=== PATIENT | male | born 1985 | race Caucasian/White ===

== ENCOUNTER 2017-06-28 17:03 | Emergency (ER) | payer BC ==
[~2017-06-28] VITALS: Ht 177.8 cm; Wt 87.5 kg
[2017-06-28 17:41] LABS: EOS # 0.1 (0.04-0.40); EOS % 0.4 % (0.0-4.0); HEMOGLOBIN 16.5 g/dL (13.5-18.0); LYMPH# 2.9 (1.50-4.00); MEAN CELL VOLUME 88 fl (78-100); MEAN CORPUSCULAR HEMOGLOBIN 30 pg (27-31); MEAN CORPUSCULAR HGB CONC 34 g/dL (33-37); MEAN PLATELET VOLUME 10.7 fl (7.4-10.4); NEU # 7.5 (1.40-6.50); PLATELET COUNT 255 K/mm3 (130-400); RED CELL DISTRIBUTION WIDTH 13.2 % (11.5-14.5); WHITE BLOOD COUNT 11.5 K/mm3 (4.8-10.8)
[2017-06-28 17:50] LABS: ALBUMIN 4.3 g/dL (3.5-5.0); BUN/CREATININE RATIO 14.5 (6.0-26.0); CALCIUM 9.7 mg/dL (8.4-10.2); POTASSIUM 3.4 mmol/L (3.6-5.0); TOTAL BILIRUBIN 0.9 mg/dL (0.2-1.3); TOTAL PROTEIN 7.5 g/dL (6.3-8.2)
[2017-06-28 17:58] LABS: PH-URINE 5.5 (5.0 - 8.0); URINE APPEARANCE CLEAR; URINE BILIRUBIN NEGATIVE (NEGATIVE); URINE BLOOD NEGATIVE (NEGATIVE); URINE COLOR YELLOW; URINE GLUCOSE NEGATIVE (NEGATIVE); URINE KETONE NEGATIVE (NEGATIVE); URINE LEUKOCYTE ESTERASE NEGATIVE (NEGATIVE); URINE NITRATE NEGATIVE (NEGATIVE); URINE PROTEIN(semi-quant) TRACE mg/dL (NEGATIVE); URINE UROBILINOGEN NORMAL (NORMAL)
[2017-06-28] MEDS ORDERED: MOBIC15 M1 PO (18:05)
[2017-06-28] MEDS ORDERED: PROPRANOLOL HCL60 M3 PO (18:06)
[2017-06-28] MEDS ORDERED: TOPAMAX50 M1 PO (18:06)
[2017-06-28] MEDS ORDERED: CARAFATE 1GM1 G PO (18:06)
[2017-06-28] MEDS ORDERED: PLAQUENIL200 MG PO (18:06)
[2017-06-28] MEDS ORDERED: TYLENOL 500MG500 MG PO (18:06)
[2017-06-28] MEDS ORDERED: ADVIL 200MG TA200 MG PO (18:07)
[2017-06-28] MEDS ORDERED: ALUMINUM & MAG355 ML PO (18:07)
[2017-06-28] MEDS ORDERED: BENTYL 20MG20 MG/TAB PO (18:08)
[2017-06-28] MEDS ORDERED: PROTONIX TR40 M1 PO (18:08)
[2017-06-28] MEDS ORDERED: LEXAPRO 10MG10 MG PO (18:08)
[2017-06-28] MEDS ORDERED: ZOFRAN ODT8 M1 PO (20:16)
[2017-06-28] MEDS ORDERED: KETOROLAC10 MG PO (20:16)
[2017-06-28 20:25] VITALS: BP 131/79
== END 2017-06-28 20:25 | disposition home or self-care (01) ==
LOC: ED 17:03
PROVIDERS: Nurse Practitioner Family
DX: R10.31 Right lower quadrant pain (principal); R10.32 Left lower quadrant pain; M54.5 Low back pain; F32.9 Major depressive disorder, single episode, unspecified; K21.9 Gastro-esophageal reflux disease without esophagitis; R30.0 Dysuria; R11.2 Nausea with vomiting, unspecified; R63.0 Anorexia; R61 Generalized hyperhidrosis
CPT/HCPCS: J1885; J2270; J2405; J7030; Q9967

== ENCOUNTER 2018-06-18 06:15 | Emergency (ER) | payer SELFPAY ==
[~2018-06-18] VITALS: Ht 177.8 cm; Wt 81.8 kg
[~2018-06-18 06:15] MED LIST: ADVIL 200MG TA200 MG PO; ALUMINUM & MAG355 ML PO; BENTYL 20MG20 MG/TAB PO; CARAFATE 1GM1 G PO; KETOROLAC10 MG PO; LEXAPRO 10MG10 MG PO; MOBIC15 M1 PO; PLAQUENIL200 MG PO; PROPRANOLOL HCL60 M3 PO; PROTONIX TR40 M1 PO; TOPAMAX50 M1 PO; TYLENOL 500MG500 MG PO; ZOFRAN ODT8 M1 PO
[2018-06-18 06:20] VITALS: BP 139/90
[2018-06-18 07:19] LABS: EOS # 0.1 (0.04-0.40); EOS % 0.9 % (0.0-4.0); HEMATOCRIT 45.9 % (42.0-52.0); HEMOGLOBIN 15.9 g/dL (13.5-18.0); LYMPH# 2.9 (1.50-4.00); MEAN CELL VOLUME 86 fl (78-100); MEAN CORPUSCULAR HEMOGLOBIN 30 pg (27-31); MEAN CORPUSCULAR HGB CONC 35 g/dL (33-37); MEAN PLATELET VOLUME 10.1 fl (7.4-10.4); MONO # 0.7 (0.20-0.80); NEU # 5.7 (1.40-6.50); PLATELET COUNT 278 K/mm3 (130-400); RED BLOOD COUNT 5.33 M/mm3 (4.20-5.60); RED CELL DISTRIBUTION WIDTH 12.8 % (11.5-14.5); WHITE BLOOD COUNT 9.5 K/mm3 (4.8-10.8)
[2018-06-18 07:39] LABS: ALBUMIN 4.5 g/dL (3.5-5.0); ALCOHOL IN-HOUSE 88 mg/dL; ALT/SGPT 53 U/L (21-72); AST-SGOT 51 U/L (17-59); CALCIUM 9.7 mg/dL (8.4-10.2); CARBON DIOXIDE 30 mmol/L (22-30); GLUCOSE 116 mg/dL (75-110); POTASSIUM 4.3 mmol/L (3.6-5.0); SODIUM 140 mmol/L (137-145); TOTAL BILIRUBIN 0.4 mg/dL (0.2-1.3); TOTAL PROTEIN 7.3 g/dL (6.3-8.2)
[2018-06-18 07:40] LABS: ACETAMINOPHEN < 4 ug/mL (10-30)
== END 2018-06-18 11:46 | disposition left against medical advice (07) ==
LOC: ED 06:15
PROVIDERS: Family Medicine
DX: F32.9 Major depressive disorder, single episode, unspecified (principal); Z53.21 Procedure and treatment not carried out due to patient leaving prior to being seen by health care provider; R45.851 Suicidal ideations

== ENCOUNTER 2019-07-08 22:10 | Emergency (ER) | payer BC ==
[2019-07-08 23:58] VITALS: BP 121/82
== END 2019-07-08 23:58 | disposition home or self-care (01) ==
LOC: ED 22:10
DX: M70.41 Prepatellar bursitis, right knee (principal); X58.XXXA Exposure to other specified factors, initial encounter